=== PATIENT | male | born 1960 | race Two or more races ===

== ENCOUNTER 2017-02-28 08:01 | Emergency (ER) | payer OTHER, SELFPAY ==
[~2017-02-28] VITALS: Ht 157.5 cm; Wt 65.9 kg
[2017-02-28] MEDS ORDERED: SODIUM CHLORIDE FLUSH 10ML SYR IVF ONE (09:30)
[2017-02-28] MEDS ORDERED: MORPHINE SULFATE 4 MG/ML, 1ML IVPush PRN (09:30)
[2017-02-28] MEDS ORDERED: MORPHINE SULFATE 4 MG/ML, 1ML ONE (09:42)
[2017-02-28 09:46] LABS: BASOPHILS # (AUTO) 0.04 x10^3/uL (0-0.1); BASOPHILS % (AUTO) 0 % (0-1); EOSINOPHILS # (AUTO) 0.01 x10^3/uL (0-0.4); EOSINOPHILS % (AUTO) 0 % (1-7); LYMPHOCYTES # (AUTO) 2.92 x10^3/uL (1-3.4); LYMPHOCYTES % (AUTO) 22 % (22-44); MD NO; MEAN CORPUSCULAR HEMOGLOBIN 28.7 pg (27.5-34.5); MEAN CORPUSCULAR HGB CONC 33.3 g/dL (33.2-36.2); MEAN CORPUSCULAR VOLUME 86.2 fL (81-97); MEAN PLATELET VOLUME 7.2 fL (7.4-10.4); MONOCYTES # (AUTO) 0.98 x10^3/uL (0.2-0.8); MONOCYTES % (AUTO) 7 % (2-9); NEUTROPHILS # (AUTO) 9.58 x10^3/uL (1.8-6.8); NEUTROPHILS % (AUTO) 71 % (42-75); PLATELET COUNT 300 x10^3/uL (130-400); RED BLOOD COUNT 5.57 x10^6/uL (4.38-5.82); RED CELL DISTRIBUTION WIDTH 13.9 % (9.4-14.8)
[2017-02-28 09:58] LABS: ALBUMIN 3.9 g/dL (3.4-5.0); ANION GAP 8 mmol/L (5-15); CALCIUM 9.1 mg/dL (8.5-10.1); CHLORIDE 104 mmol/L (98-107); CREATININE 1.11 mg/dL (0.7-1.3)
[2017-02-28] MEDS ORDERED: PRED20TA PO (10:02)
[2017-02-28] MEDS ORDERED: BUPIVACAINE/PF 0.5% ONE (10:31)
[2017-02-28] MEDS ORDERED: LIDOCAINE 1%, 10ML ONE (10:32)
[2017-02-28 12:07] LABS: SYN CELLS COUNTED 1595
[2017-02-28 12:08] LABS: SYN CELLS COUNTED 1910
[2017-02-28] MEDS ORDERED: COLCHICINE 0.6 MG TABLET PO STA (12:56)
[2017-02-28 13:11] VITALS: BP 112/68
== END 2017-02-28 14:23 | disposition home or self-care (01) ==
LOC: ED 09:43
DX: M10.00 Idiopathic gout, unspecified site (principal); M13.0 Polyarthritis, unspecified; E11.9 Type 2 diabetes mellitus without complications; I10 Essential (primary) hypertension; E66.9 Obesity, unspecified
CPT/HCPCS: 20610; 36415; 80048; 82040; 84550; 85025; 85651; 85810; 86140; 87040; 87070; 87205; 89050; 89060; 96374